=== PATIENT | female | born 1945 | race Caucasian/White ===

== ENCOUNTER → 2024-12-23 08:55 | Outpatient (REF) | payer MEDICARE, OTHER, SELFPAY ==
[2024-12-23 09:19] LABS: Glucose 97 mg/dl (70-99)
== END ==
LOC: PET 08:55
PROVIDERS: ATTENDING PHYSICIAN Registered Nurse; REFERRING PHYSICIAN Internal Medicine Hematology & Oncology
DX: C56.1 Malignant neoplasm of right ovary (principal); C56.2 Malignant neoplasm of left ovary; I80.3 Phlebitis and thrombophlebitis of lower extremities, unspecified; M79.604 Pain in right leg; R53.81 Other malaise
CPT/HCPCS: 36415; 82947